=== PATIENT | female | born 1990 | race Caucasian/White ===

== ENCOUNTER 2022-04-13 10:30 | Inpatient (IN) | payer BC ==
[~2022-04-13] VITALS: Ht 170.2 cm; Wt 80.7 kg
[~2022-04-13 10:30] MED LIST: COLACE100 MG PO; PRENATAL VITAM1 EAC3 PO; PRILOSEC OTC20 MG PO; ZANTAC 150 MG150 MG PO
[2022-04-13 16:50] LABS: RED BLOOD COUNT 3.47 M/UL (4.00-5.10); WHITE BLOOD COUNT 13.3 K/UL (4.5-11.0)
[2022-04-13] MEDS ORDERED: PEPCID20 MG PO (18:27)
[2022-04-13] MEDS ORDERED: CARAFATE1 GM PO (18:29)
[2022-04-14 06:32] LABS: HEMOGLOBIN 10.5 gm/dl (12.3-15.3)
[2022-04-15] MEDS ORDERED: COLACE 100MG C100 MG PO (12:52)
[2022-04-15] MEDS ORDERED: HYDROCODON-ACE1 EAC4 PO (12:52)
[2022-04-15] MEDS ORDERED: IBUPROFEN800 MG PO (12:52)
== END 2022-04-15 15:09 | disposition home or self-care (01) | DRG 806 ==
LOC: GENOP 10:30 → OB 16:33
PROVIDERS: ADMIT Obstetrics & Gynecology
PROC: 10E0XZZ Delivery of Products of Conception, External Approach (ICD-10-PCS; principal; 2022-04-13)
PROC: 3E033VJ Introduction of Other Hormone into Peripheral Vein, Percutaneous Approach (ICD-10-PCS; 2022-04-13)
PROC: 0W8NXZZ Division of Female Perineum, External Approach (ICD-10-PCS; 2022-04-13)
PROC: 0HQ9XZZ Repair Perineum Skin, External Approach (ICD-10-PCS; 2022-04-13)
PROC: 3E0234Z Introduction of Serum, Toxoid and Vaccine into Muscle, Percutaneous Approach (ICD-10-PCS; 2022-04-13)
DX: O70.0 First degree perineal laceration during delivery (principal); O72.1 Other immediate postpartum hemorrhage; Z37.0 Single live birth; Z3A.39 39 weeks gestation of pregnancy; Z28.310 Unvaccinated for COVID-19; Z88.8 Allergy status to other drugs, medicaments and biological substances; Z80.8 Family history of malignant neoplasm of other organs or systems; Z23 Encounter for immunization
CPT/HCPCS: 36415; 81001; 85014; 85018; 85025; 86850; 86900; 86901; 86920; 90715; J1956; J2210; J2270; J2405; J2550; J2590